=== PATIENT | male | born 1940 | race Caucasian/White ===

== ENCOUNTER 2018-10-25 11:10 | Inpatient (IN) ==
--- NOTE | 2018-10-25 11:55 | Diag Imaging Result Doc PS360 ---
EXAM: CHEST-2 VIEWS 10/25/2018 HISTORY: Shortness of breath TECHNIQUE: PA and lateral chest COMMENT: There are sternotomy wires. There is ill-defined opacity in the parahilar region of the left upper lobe which was not the case on 09/24/2018. The heart size and pulmonary vascularity are within normal limits. IMPRESSION: Bronchopneumonia left upper lobe. Electronically signed by Louie Vargas 10/25/2018 11:53 AM
[2018-10-25 12:08] LABS: INR 0.94; PROTIME 13.3 Seconds (11.0-16.0)
[2018-10-25 12:09] LABS: PTT 25.8 Seconds (22.3-41.8)
[2018-10-25 12:22] LABS: BASO# 0.01 X1000 (0.0-0.2); BASO% 0.1 % (0.0-0.8); EOS# 0.05 X1000 (0.0-0.7); EOS% 0.3 % (0.0-10.0); HEMATOCRIT 48.1 % (42.0-52.0); HEMOGLOBIN 16.2 g/dL (14.0-18.0); IMM GRAN# 0.05 X1000 (0.0-0.04); IMM GRAN% 0.3 % (0.0-0.5); LYMPH# 0.94 X1000 (1.2-3.4); LYMPH% 5.7 % (20.5-51.1); MCH 30.3 PG (27-31); MCHC 33.7 g/dL (33-37); MCV 90.1 FL (81-99); MONO# 0.67 X1000 (0.11-0.59); MONO% 4.1 % (1.7-9.3); NEUT# 14.66 X1000 (1.4-6.5); NEUT% 89.5 % (42.2-75.2); PLT 220 X1000 (130-400); RBC 5.34 XMIL (4.7-6.1); WBC 16.38 X1000 (4.8-10.8)
[2018-10-25 12:34] LABS: ALB/GLOB RATIO 1.4; ALBUMIN 3.9 g/dL (3.5-5.0); CALCIUM 9.5 mg/dL (8.8-10.2); CREATININE 1.7 mg/dL (0.7-1.2); POTASSIUM 4.4 mmol/L (3.5-5.1); TOTAL BILIRUBIN 1.06 mg/dL (0.20-1.00); TOTAL PROTEIN 6.6 g/dL (6.3-8.3)
[2018-10-25] MEDS ORDERED: NS 1,000 ML IV ONE ×2 (13:16→13:34)
[2018-10-25] MEDS ORDERED: HUMULIN R SUBQ ONE (13:16)
[2018-10-25] MEDS ORDERED: VANCOMYCIN 1 GM/NS 1 GM/250 ML IVPB IV ONE (13:28)
[2018-10-25] MEDS ORDERED: ZOFRAN IV PRN (13:40)
[2018-10-25 13:53] LABS: ALLEN TEST YES; BE 0.8 mmoll (-3.0-3.0); BLOOD TYPE ARTERIAL; HCO3-(ACT) 25.4 mmoll (20.0-26.0); METHB 0.5 % (0.0-1.5); O2HB 94.2 % (95.0-99.0); PCO2(98.6) 35 mmHg (35-45); PO2(98.6) 71 mmHg (60-100); SAMPLE BLOOD; SAO2 95.7 % (95.0-100.0); THB 15.9 g/dL (11.5-17.4); pH(98.6) 7.45 (7.35-7.45)
[2018-10-25 13:55] LABS: MODALITY ROOM AIR
[2018-10-25 14:14] LABS: AMYLASE 44 U/L (20-200); LIPASE 58 U/L (13-60); MAGNESIUM 2.1 mg/dL (1.5-2.7); PHOSPHORUS 3.9 mg/dL (2.7-4.5)
[2018-10-25 14:18] LABS: HEMOGLOBIN A1C 8.5 % (4.8-6.0)
[2018-10-25 14:44] LABS: ACETONE SERUM NEGATIVE (NEGATIVE)
[2018-10-25] MEDS: DUONEB (A & A) INH SCH ×2 (15:39→21:08)
[2018-10-25] MEDS ORDERED: MAGNESIUM SULFATE 2 GM/S.W.I. 2 GM/50 ML IVPB IV PRN (16:09)
[2018-10-25] MEDS ORDERED: SODIUM PHOSPHATE 30 MMOL in D5W 250 ML IV PRN (16:09)
[2018-10-25] MEDS ORDERED: D50W SYRINGE IV PRN (16:09)
[2018-10-25] MEDS ORDERED: POTASSIUM CHLORIDE 10% LIQUID PO PRN (16:09)
[2018-10-25] MEDS ORDERED: POTASSIUM CHLORIDE 40 MEQ/SWI 40 MEQ/100 ML IVPB IV PRN (16:09)
[2018-10-25] MEDS ORDERED: COMPAZINE PO PRN (16:09)
[2018-10-25] MEDS ORDERED: COMPAZINE IV PRN (16:09)
[2018-10-25] MEDS: HUMULIN R IV ONE ×2 (16:09)
[2018-10-25] MEDS ORDERED: HUMULIN R 100 UNIT in NS 99 ML IV SCH (16:09)
[2018-10-25] MEDS ORDERED: POTASSIUM CHLORIDE 20 MEQ/SWI 20 MEQ/100 ML IVPB IV PRN (16:09)
--- NOTE | 2018-10-25 16:47 | HISTORY AND PHYSICAL ---
DATE OF ADMISSION: October 25, 2018. PRIMARY CARE PHYSICIAN: Mona Diamond MD. CC: Polyuria, dry mouth, cough and shortness of breath. HISTORY OF PRESENT ILLNESS: Mr. Torrey Castle is an 82-[id number]- male with a medical history of hypertension, arthritis, seizure disorder, asthma, and coronary artery disease who now presents with complaints of having three week's worth of polyuria and dry mouth with difficulty eating due to the dry mouth. He also states that since then he has had a cough with it that is nonproductive and shortness of breath. He denies any fever or chills. He does have an inhaler. He has had asthma all his life. He has never been a smoker, and he has inspiratory wheezes. He states that at home he usually uses his inhaler which usually helps. Here, he has an elevated white blood cell count of 16,000 and a chest x-ray which showed bronchial pneumonia of the left upper lobe. On top of that, he has a blood glucose level of 815 with no medical history of having diabetes. He states that the last time he saw his primary care provider, she told him to not eat as much sugar that his blood sugar was a little elevated. Hemoglobin A1C was performed on this admit, and it is 8.5. We will start him on an insulin drip with some IV fluids and will transfer him to the ICU for overnight. PAST MEDICAL HISTORY: 1. Hypertension. 2. Arthritis. 3. Seizure disorder with the last one being in 2009. 4. Asthma. 5. CAD with a history of CABG. 6. Hyperlipidemia. 7. Skin cancer. 8. New diagnosis of diabetes mellitus type 2. 9. Influenza on October 07, 2018. 10.CKD stage 3. SURGICAL HISTORY: 1. CABG x1. 2. Bilateral inguinal hernia repair. 3. Bilateral cataracts. 4. Left foot surgery. SOCIAL HISTORY: Denies tobacco. Sips min on occasion only when he is playing golf, and he plays golf three times a week. He also goes to the gym three times a week. He is retired from working at [employer]. Denies any illicit drug use. FAMILY HISTORY: Brother had myocardial infarction. Mother had hypertension and diabetes. Father had myocardial infarction. ALLERGIES: PENICILLIN CAUSES A RASH BETWEEN THE FINGERS. HOME MEDICATIONS: Not reconciled by nursing staff yet. He does take Keppra though. He states he has been taking that 500 mg p.o. twice a day. Will wait for the full medication list to be reconciled. REVIEW OF SYSTEMS: 14 point review of systems was complete and all are negative except for those mentioned above in the HPI. Denies fever or chills. States that on occasion his stomach hurts only when he is coughing hard. He does have a cough that is nonproductive. He has some mild shortness of breath and wheezing. He recently had a positive flu that he was treated for. He has had complaints of excessive urination and very dry mouth for at least three weeks. PHYSICAL EXAM: VITAL SIGNS: Temperature 98.7, heart rate 92, respiratory rate 15, and blood pressure 132/87 with an O2 saturation of 94% on room air. He is 5'7" tall and weighs 150 pounds. BMI is 23.5. GENERAL: Mr. Torrey Castle is an 89-[id number]- male. He is in no acute distress. He is currently wearing a face mask due to his recent flu. It is not an oxygen face mask. It is a protective face mask. HEENT: Normocephalic, atraumatic. Pupils are equal, round and reactive to light. Extraocular movements intact. Mucous membranes are dry. NECK: Trachea is midline. CARDIOVASCULAR: S1, S2 with a regular rate and rhythm. No murmurs, rubs or gallops. No lower extremity edema. Plus 2 dorsalis and radial pulses. Negative JVD or carotid bruits. PULMONARY: Expiratory wheezes throughout. No accessory muscle use or work of breathing noted. GI: Soft, nontender and nondistended. Positive bowel sounds x4. EXTREMITIES: He is moving all extremities equally with full range of motion. NEUROLOGICAL: Alert and oriented x3. Follows commands. Sensory is intact. SKIN: Warm, dry and intact. LABORATORY DATA: WBC 16,000, hemoglobin 16, hematocrit 48 and platelet count 220. INR 0.94, PTT 25.8. ABGs are normal on room air with a pH of 7.45, pCO2 of 35, and pO2 with a bicarb of 25 and base excess of 0.8 with a saturation of 94% and lactate 1.5. Sodium 134, potassium 4.4, BUN 31, creatinine 1.1, glucose 815, hemoglobin A1C 8.5, phosphorous 3.9, magnesium 2.1 , bilirubin 1.06, AST 10, ALT 21, CK 22, troponin less than 0.01, proBNP 541, albumin 3.9, triglycerides 600, cholesterol total 192, HDL 39, LDL 73, amylase 44, lipase 58, serum lactate 1.5 , and serum acetone negative. IMAGING: Chest x-ray showed left upper lobe bronchopneumonia. ASSESSMENT AND PLAN: 1. Nonketotic hyperglycemia with newly diagnosed diabetes mellitus type 2. He did have steroids recently. It was back in September around the to be treated for the flu. He was only told by his physician to eat less sugar. His hemoglobin A1C is 8.5. ABGs are normal. He is not in any type of acidosis. We will put him on an insulin drip per protocol and monitor him only overnight in the ICU. Should be able to titrate down to a sliding scale. Once he can eat, he can be on a diabetic diet. 2. Cough with shortness of breath and community acquired left upper lobe bronchopneumonia. He will be getting treated with meropenem 1 gram IV q. 12 hours. Of course, he will still be getting IV fluid hydration. Nebulizers as well. 3. Asthma. Again, he will be on nebulizers. We will hold off on steroids given his high blood sugar. 4. Deep vein thrombosis prophylaxis with 5,000 units subcutaneously of heparin IV every 12 hours. 5. Chronic kidney disease stage 3. Currently he is at baseline. Patient seen and examined by me face to face, all the laboratory, vitals signs and images were reviewed, patient presented with elevated glucose levels, he has never been diagnose with diabetes he is severely dehydrated on my physical exam, mouth pain, weakness, patient states that he has been coughing more recently, to the point that he is always short of breath, images showed pneumonia, left hilar area, I will use insulin drip, antibiotics, respiratory treatment, oxygen, will get an HbA1C, he will go to the ICU, I agree with the [facility]'s assessment and plan, Toño Gibson MD. Dictated by KAREN Kaminski for Toño Li MD cc: KAREN Kaminski MD [facility]
[2018-10-25] MEDS ORDERED: VANCOMYCIN 1 GM/NS 1 GM/250 ML IVPB ONE (17:05)
--- NOTE | 2018-10-25 17:09 | ED EKG INTERP ---
This chart was entered by Isatu Hannah Scribe, acting as scribe for Nanda Love MD. EKG Interpretation - EKG Time of EKG reading by physician:: 11:50 EKG Read and Signed by:: Nanda Love (v) EKG Interpretation (*Must complete 3 of following elements*): Abnormal Rate: 93 Rhythm: NSR [place]: left ST Wave: normal Comments: possible left atrial enlargement, inferior infarct Attestation - Physician/ HELEN Attestation Patient care was provided by Advanced Practice Provider:: No The physician spent face to face time with patient:: Yes Advanced Practice Provider documentation review:: Supervising physician onsite and consulted in the evaluation and care of this patient. The physician did have a face to face encounter with the patient. This chart was documented by the indicated scribe, (Isatu Hannah Scribe) and accurately reflects the services I performed and decisions made by me, Nanda Love MD, as attested by the provider's signature.
--- NOTE | 2018-10-25 17:09 | PROVIDER DOCUMENTATION ---
This chart was entered by Isatu Hannah Scribe, acting as scribe for Nanda Love MD. HPI-Respiratory General - General Chief Complaint: Shortness of Breath Stated Complaint: FLU SYMPTOMS Time Seen by Provider: 10/25/18 13:13 Source: patient Allergies/Adverse Reactions: Patient Allergies Allergy/AdvReac Type Severity Reaction Status Date / Time Penicillins Allergy RASH Verified 10/25/18 13:23 Home Medications: Home Medication List Medication Instructions Recorded Confirmed Last Taken Type Albuterol Sulfate 1.25 mg IH PRN PRN 11/30/14 11/30/14 Unknown History Febuxostat [Uloric] 80 mg PO DAILY 11/30/14 11/30/14 12/01/14 20:00 History Hydrochlorothiazide 25 mg PO DAILY 11/30/14 11/30/14 12/01/14 20:00 History Hydroxyzine [Atarax] 25 mg PO BID 11/30/14 11/30/14 12/01/14 08:00 History Levetiracetam [Keppra] 500 mg PO BID 11/30/14 11/30/14 12/02/14 07:15 History Losartan Potassium [Cozaar] 25 mg PO DAILY 11/30/14 11/30/14 12/01/14 20:00 History Meloxicam [Mobic] 15 mg PO DAILY 11/30/14 11/30/14 12/01/14 20:00 History Montelukast Sodium [Singulair] 10 mg PO DAILY 11/30/14 11/30/14 12/01/14 20:00 History [place]-3 Fatty Acids/Fish Oil 1 each PO DAILY 11/30/14 11/30/14 12/01/14 08:00 History [[place] 3 1,000 mg Softgel] Potassium Chloride 10 meq PO DAILY 11/30/14 11/30/14 12/01/14 08:00 History Tramadol [Ultram] 50 mg PO Q6H PRN PRN 11/30/14 11/30/14 12/01/14 08:00 History - History of Present Illness-Resp Nature of Presenting Problem: 78yom c/o cough, sob, sore mouth, and chest pain with cough for one week. He reports he has been ill since 10/13/18, and has been diagnosed with influenza twice and seen in the ED twice since this time. He reports visiting his PCP on Friday and was prescribed steroids and antibiotics. He reports that his PCP wanted to admit him to the hospital at this time, but he declined. He has no hx of diabetes, per family. He reports his symptoms are not improving. He denies fever, chills, nausea, vomiting, diarrhea. Quality of Pain: reports: aching Severity in ED: reports: mild Onset/Duration: reports: 1 week ago Timing: reports: still present, intermittent, constant Current Respiratory Medication Therapy: Initiated see nurses note Modifying Factors: improves with: nothing Associated Symptoms: reports: other (cough, sob, sore mouth, and chest pain with cough) Similar Symptoms Previously?: No Recently seen or treated by another doctor?: No Review of Systems - Adult - REVIEW OF SYSTEMS - ADULT Constitutional: denies: chills, fever Eyes: denies: discharge, dry eyes Ears, Nose, Mouth & Throat: reports: other (sore mouth). denies: ear discharge , ear pain Cardiovascular: reports: chest pain (with cough). denies: palpitations Respiratory: reports: cough, shortness of breath Gastrointestinal: denies: abdominal pain, diarrhea, nausea, vomiting Genitourinary: denies: dysuria, hematuria Musculoskeletal: denies: back pain, muscle aches, muscle weakness Integumentary: reports: no symptoms reported Neurological: denies: dizziness/vertigo, headache/migraines Psychiatric: reports: no symptoms reported Endocrine: reports: no symptoms reported Hematologic/Lymphatic: reports: no symptoms reported Allergic/Immunologic: reports: no symptoms reported All Other Systems: Reviewed and Negative Past History - Adult - PAST MEDICAL HISTORY-ADULT Review of Records: reports: Old Records Reviewed, Nursing Assessment Review, Medications Reviewed Cardiovascular: reports: HTN Genitourinary: reports: kidney disease Neurological: reports: CVA, Seizures/Epilepsy Endocrine/Immune: reports: Diabetes - PRIOR SURGERIES/PROCEDURES Surgical/Procedure History: reports: CABG - IMMUNIZATION STATUS Childhood Immunizations: See Nurse Assessment Flu Vaccine: See Nurse Assessment - FAMILY HISTORY Family History: reviewed, not pertinent - SOCIAL HISTORY Smoking: non-smoker Substance Use: denies Living Situation: family Physical Exam-General - PHYSICAL EXAM-ADULT Initial Vital Signs Reviewed: Yes - CONSTITUTIONAL General Appearance: alert, no apparent distress, other (pt is wearing a mask) - EYES Eyes: PERRL/EOMI, pink conjunctivae - HEAD, EARS, NOSE, MOUTH & THROAT HENMT: moist mucous membranes, other - NECK Neck: non-tender, supple - RESPIRATORY Respiratory: no respiratory distress, no accessory muscle use, crackles - CARDIOVASCULAR Cardiovascular: regular rate, rhythm, no murmur - MUSCULOSKELETAL Extremity: non-tender, no pedal edema - SKIN Integumentary: normal color, warm/dry - NEUROLOGIC Neurologic: grossly normal, no motor/sensory deficits - PSYCHIATRIC Psych/Mental Status: normal mood/affect, normal thought content, normal thought process, oriented x 3 Progress - PLAN OF CARE/RESULTS Progress/Plan/Lab Results: Vital Signs - 8 hr 10/25/18 11:34 Temperature 98.7 F Pulse Rate 100 H Respiratory Rate 18 Blood Pressure 132/87 O2 Sat by Pulse Oximetry 100 10/25/18 13:49 Influenza Screen - Final Nasopharyngeal Laboratory Results - last 24 hr 10/25/18 10/25/18 10/25/18 11:47 11:47 11:47 WBC 16.38 H RBC 5.34 Hgb 16.2 Hct 48.1 MCV 90.1 MCH 30.3 MCHC 33.7 RDW Std Deviation 12.0 Plt Count 220 MPV 11.0 H Immature Gran % (Auto) 0.3 Neut % (Auto) 89.5 H Lymph % (Auto) 5.7 L [place] % (Auto) 4.1 Eos % (Auto) 0.3 Baso % (Auto) 0.1 Immature Gran # (Auto) 0.05 H Neut # (Auto) 14.66 H Lymph # (Auto) 0.94 L [place] # (Auto) 0.67 H Eos # (Auto) 0.05 Baso # (Auto) 0.01 PT INR PTT (Actin FS) Specimen Type Sample Site pH pCO2 pO2 HCO3 Base Excess Oxyhemoglobin ABG O2 Sat (Calculated) ABG O2 Saturation ABG Carboxyhemoglobin ABG Methemoglobin Remi Test A-a O2 Difference Total Hemoglobin POC Ioniz Calcium Lactate Blood Gas Modality FiO2 % Sodium 134 L Potassium 4.4 Chloride 91 L Carbon Dioxide 25 Anion Gap 18 BUN 31 H Creatinine 1.7 H Estimated GFR/1.73 m2 39 BUN/Creatinine Ratio 18 Glucose 815 H* Estimat Average Glucose Hemoglobin A1c Calculated Osmolality 314 Calcium 9.5 Phosphorus Magnesium Total Bilirubin 1.06 H AST 10 ALT 21 Alkaline Phosphatase 97 Creatine Kinase 22 L Troponin T Udx-V-Aiftxonleqs Pept 541 H Total Protein 6.6 Albumin 3.9 Globulin 2.7 Albumin/Globulin Ratio 1.4 Triglycerides Cholesterol LDL Cholesterol Direct VLDL Cholesterol, Calc HDL Cholesterol Coronary Risk Interp Amylase Lipase Plasma Lactate Acetone Level 10/25/18 10/25/18 10/25/18 11:47 11:47 11:47 WBC RBC Hgb Hct MCV MCH MCHC RDW Std Deviation Plt Count MPV Immature Gran % (Auto) Neut % (Auto) Lymph % (Auto) [place] % (Auto) Eos % (Auto) Baso % (Auto) Immature Gran # (Auto) Neut # (Auto) Lymph # (Auto) [place] # (Auto) Eos # (Auto) Baso # (Auto) PT 13.3 INR 0.94 PTT (Actin FS) 25.8 Specimen Type Sample Site pH pCO2 pO2 HCO3 Base Excess Oxyhemoglobin ABG O2 Sat (Calculated) ABG O2 Saturation ABG Carboxyhemoglobin ABG Methemoglobin Remi Test A-a O2 Difference Total Hemoglobin POC Ioniz Calcium Lactate Blood Gas Modality FiO2 % Sodium Potassium Chloride Carbon Dioxide Anion Gap BUN Creatinine Estimated GFR/1.73 m2 BUN/Creatinine Ratio Glucose Estimat Average Glucose Hemoglobin A1c Calculated Osmolality Calcium Phosphorus Magnesium Total Bilirubin AST ALT Alkaline Phosphatase Creatine Kinase Troponin T < 0.010 Yvg-W-Khbfjdnciog Pept Total Protein Albumin Globulin Albumin/Globulin Ratio Triglycerides 600 H Cholesterol 192 LDL Cholesterol Direct 73 VLDL Cholesterol, Calc 120 HDL Cholesterol 39 Coronary Risk Interp 5.00 Amylase Lipase Plasma Lactate Acetone Level 10/25/18 10/25/18 10/25/18 11:47 11:47 13:42 WBC RBC Hgb Hct MCV MCH MCHC RDW Std Deviation Plt Count MPV Immature Gran % (Auto) Neut % (Auto) Lymph % (Auto) [place] % (Auto) Eos % (Auto) Baso % (Auto) Immature Gran # (Auto) Neut # (Auto) Lymph # (Auto) [place] # (Auto) Eos # (Auto) Baso # (Auto) PT INR PTT (Actin FS) Specimen Type Sample Site pH pCO2 pO2 HCO3 Base Excess Oxyhemoglobin ABG O2 Sat (Calculated) ABG O2 Saturation ABG Carboxyhemoglobin ABG Methemoglobin Remi Test A-a O2 Difference Total Hemoglobin POC Ioniz Calcium 1.26 Lactate Blood Gas Modality FiO2 % Sodium Potassium Chloride Carbon Dioxide Anion Gap BUN Creatinine Estimated GFR/1.73 m2 BUN/Creatinine Ratio Glucose Estimat Average Glucose 197 Hemoglobin A1c 8.5 H Calculated Osmolality Calcium Phosphorus 3.9 Magnesium 2.1 Total Bilirubin AST ALT Alkaline Phosphatase Creatine Kinase Troponin T Ohi-Z-Fluweehnxph Pept Total Protein Albumin Globulin Albumin/Globulin Ratio Triglycerides Cholesterol LDL Cholesterol Direct VLDL Cholesterol, Calc HDL Cholesterol Coronary Risk Interp Amylase 44 Lipase 58 Plasma Lactate Acetone Level NEGATIVE 10/25/18 10/25/18 13:44 13:51 WBC RBC Hgb Hct MCV MCH MCHC RDW Std Deviation Plt Count MPV Immature Gran % (Auto) Neut % (Auto) Lymph % (Auto) [place] % (Auto) Eos % (Auto) Baso % (Auto) Immature Gran # (Auto) Neut # (Auto) Lymph # (Auto) [place] # (Auto) Eos # (Auto) Baso # (Auto) PT INR PTT (Actin FS) Specimen Type ARTERIAL Sample Site L RADIAL pH 7.45 pCO2 35 pO2 71 HCO3 25.4 Base Excess 0.8 Oxyhemoglobin 94.2 L ABG O2 Sat (Calculated) 21.0 ABG O2 Saturation 95.7 ABG Carboxyhemoglobin 1.10 ABG Methemoglobin 0.5 Remi Test YES A-a O2 Difference 35.0 Total Hemoglobin 15.9 POC Ioniz Calcium Lactate 1.50 Blood Gas Modality ROOM AIR FiO2 % 21.0 Sodium Potassium Chloride Carbon Dioxide Anion Gap BUN Creatinine Estimated GFR/1.73 m2 BUN/Creatinine Ratio Glucose Estimat Average Glucose Hemoglobin A1c Calculated Osmolality Calcium Phosphorus Magnesium Total Bilirubin AST ALT Alkaline Phosphatase Creatine Kinase Troponin T Dwy-X-Mudcnduybuf Pept Total Protein Albumin Globulin Albumin/Globulin Ratio Triglycerides Cholesterol LDL Cholesterol Direct VLDL Cholesterol, Calc HDL Cholesterol Coronary Risk Interp Amylase Lipase Plasma Lactate 1.5 Acetone Level Orders Category Date Time Status Admit - [facility] Routine AdmDCTranf 10/25/18 13:40 Active Activity - Bedrest with BSC ORDERED Care 10/25/18 13:40 Active Cardiac Monitoring DIRECTED Care 10/25/18 11:39 Active [place]mers Cath Insertion ORDERED Care 10/25/18 13:29 Active Oxygen Therapy- ED Nursing DIRECTED Care 10/25/18 11:39 Active Saline Loc NOW Care 10/25/18 11:39 Active Update & Confirm Home Medicati ROUTINE Care 10/25/18 13:40 Active Use DKA Protocol (paper) ORDERED Care 10/25/18 13:34 Active Vital Signs Order Q1H Care 10/25/18 13:40 Active Clear Liquid Diet Diet 10/25/18 13:40 Active CHEST-2 VIEWS [RAD] Stat Exams 10/25/18 11:39 Completed A1C HGB W EST AVG GLUCOSE [CHEM] Stat Lab 10/25/18 11:47 Completed ABG [RESP] Routine Lab 10/25/18 13:44 Completed AMYLASE [CHEM] Stat Lab 10/25/18 11:47 Completed BLOOD CULTURE [BLDCUL] Stat Lab 10/25/18 13:51 Results CBC WITH ELECTRONIC DIFF [HEME] Stat Lab 10/25/18 11:47 Completed CK PROFILE [SP CHEM] Stat Lab 10/25/18 11:47 Completed COMPREHENSIVE METABOLIC PANEL [CHEM] Stat Lab 10/25/18 11:47 Completed Flu Swab [INFLUENZA SCREEN A/B] Stat Lab 10/25/18 13:49 Completed I-STAT IONIZED CALCIUM [RESP] Routine Lab 10/25/18 13:42 Completed Ketone [ACETONE SERUM] [CHEM] Stat Lab 10/25/18 11:47 Completed LACTATE, PLASMA [CHEM] Stat Lab 10/25/18 13:51 Completed LIPASE [CHEM] Stat Lab 10/25/18 11:47 Completed LIPID PROFILE W/DIR LDL [LIPIDS] Stat Lab 10/25/18 11:47 Completed MAGNESIUM [CHEM] Stat Lab 10/25/18 11:47 Completed PHOSPHORUS [CHEM] Stat Lab 10/25/18 11:47 Completed PRO B-NATRIURETIC PEPTIDE Stat Lab 10/25/18 11:47 Completed PROTIME WITH INR [COAG] Stat Lab 10/25/18 11:47 Completed PTT [COAG] Stat Lab 10/25/18 11:47 Completed TROPONIN T Stat Lab 10/25/18 11:47 Completed URINALYSIS W/POSS RFLX CULT [URINALYSIS] Stat Lab 10/25/18 13:29 Uncollected URINE DRUG SCREEN Stat Lab 10/25/18 13:42 Uncollected 0.9% Sodium Chloride Inj [Ns] 1,000 ml Med 10/25/18 13:45 Active IV 125 mls/hr 0.9% Sodium Chloride Inj [Ns] 1,000 ml Med 10/25/18 13:16 Discontinued IV 999 mls/hr 0.9% Sodium Chloride Inj [Ns] 1,000 ml Med 10/25/18 13:34 Discontinued IV 999 mls/hr Acetaminophen [Tylenol] Med 10/25/18 13:40 Active 650 mg PO Q6H PRN PRN Albuterol 2.5MG/Ipratrop 0.5MG [Duoneb (A & A)] Med 10/25/18 16:00 Active 3 ml INH RTQ6H Heparin Med 10/25/18 21:00 Active 5,000 unit SUBQ Q12H Insulin Human Regular [Humulin R] Med 10/25/18 13:16 Discontinued 10 unit SUBQ NOW ONE Linezolid 600 mg/D5w [Zyvox 600 mg/D5w] Med 10/25/18 13:45 Active 600 mg in 300 ml IV Q12H Meropenem [Merrem] 1 gm Med 10/25/18 16:00 Active 0.9% Sodium Chloride Inj [Ns] 50 ml IV Q12H Ondansetron [Zofran] Med 10/25/18 13:40 Active 4 mg IV Q4H PRN PRN Vancomycin 1 gm/Ns Med 10/25/18 13:28 Discontinued 1 gm in 250 ml IV NOW CP/SOB/Palp >45 yrs of Age Stat Oth 10/25/18 11:39 Ordered EKG [EKG] Stat Ther 10/25/18 11:39 Ordered Transfer/Admit Order [TRANSFER] Routine Transfer 10/25/18 13:35 Ordered Result Diagrams: 10/25/18 11:47 10/25/18 11:47 - XRAY 1 XRAY Study: Chest Impression: Abnormal (COMMENT: There are sternotomy wires. There is ill-defined opacity in the parahilar region of the left upper lobe which was not the case on 09/24/2018. The heart size and pulmonary vascularity are within normal limits. IMPRESSION: Bronchopneumonia left upper lobe.) - CONSULTS/PCP/HOSPITALIST Notification #1 *Consult/PCP/Hospitalist*: KAREN Garcia Time Discussed: 13:29 Consult Disposition: Admit Departure - Departure Date of Disposition Decision: 10/25/18 Time of Disposition Decision: 14:30 DIAGNOSIS: Hypoglycemia, Influenza, Hyperglycemia, Acute on chronic kidney failure Sepsis Qualifiers: Sepsis type: sepsis due to unspecified organism Qualified Code(s): A41.9 - Sepsis, unspecified organism Pneumonia Qualifiers: Pneumonia type: due to unspecified organism Laterality: unspecified laterality Lung location: unspecified part of lung Qualified Code(s): J18.9 - Pneumonia, unspecified organism Disposition: ADMITTED INPATIENT 09 Certified Medical Emergency: Emergent Condition: Stable - Critical Care Note This patient required my direct & personal management of CC.: Yes Total Time (mins): 35 Critical Care Statement: This patient required my direct personal management to treat or rule out processes, the absence of which, could potentiallly result in sudden, clinically significant life or limb threatening deterioration. Attestation - Physician/ HELEN Attestation Patient care was provided by Advanced Practice Provider:: No The physician spent face to face time with patient:: Yes Advanced Practice Provider documentation review:: Supervising physician onsite and consulted in the evaluation and care of this patient. The physician did have a face to face encounter with the patient. This chart was documented by the indicated scribe, (Isatu Hannah, Luois[place]) and accurately reflects the services I performed and decisions made by me, Nanda Love MD, as attested by the provider's signature.
[2018-10-25] MEDS: NS 1,000 ML IV SCH (17:14)
[2018-10-25] MEDS: MERREM 1 GM in NS 50 ML IV SCH (20:26)
[2018-10-25 20:34] LABS: URINE SOURCE CATH
[2018-10-25 20:49] LABS: UR AMPHETAMINES QUAL NONE DETECTED (NONE DETECT); UR BARBITUATES QUAL NONE DETECTED (NONE DETECT); UR BENZODIAZEPIN QUAL NONE DETECTED (NONE DETECT); UR CANNABINOIDS QUAL NONE DETECTED (NONE DETECT); UR COCAINE QUAL NONE DETECTED (NONE DETECT); UR METHADONE QUAL NONE DETECTED (NONE DETECT); UR OPIATES QUAL NONE DETECTED (NONE DETECT); UR OXYCODONE QUAL NONE DETECTED (NONE DETECT); UR PCP QUAL NONE DETECTED (NONE DETECT)
[2018-10-25 20:50] LABS: BILIRUBIN URINE NEGATIVE (NEGATIVE); BLOOD URINE NEGATIVE (NEGATIVE); COLOR YELLOW; GLUCOSE URINE >1000 mg/dL (NEGATIVE); KETONE URINE 10 mg/dL (NEGATIVE); LEUKOCYTES URINE NEGATIVE (NEGATIVE); NITRITE URINE NEGATIVE (NEGATIVE); PH URINE 5.5; PROTEIN URINE NEGATIVE (NEGATIVE); SP GRAVITY URINE 1.029; TURBIDITY URINE CLEAR (CLEAR); UROBILINOGEN URINE NORMAL (NORMAL)
[2018-10-25 20:52] LABS: UR EPITHELIAL CELLS <10 /HPF (<10); URINE BACTERIA NEGATIVE /HPF; URINE RBC <10 /HPF (<10); URINE WBC <10 /HPF (<10)
[2018-10-26] MEDS: NS 1,000 ML IV SCH ×6 (00:13→15:30)
[2018-10-26] MEDS: ZYVOX 600 MG/D5W 600 MG/300 ML IVPB IV SCH ×3 (00:52→14:52)
[2018-10-26] MEDS: HEPARIN SUBQ SCH ×3 (00:53→20:03)
[2018-10-26] MEDS: DUONEB (A & A) INH SCH ×4 (03:17→22:22)
[2018-10-26] MEDS: D5 NS 1,000 ML IV SCH ×2 (03:37→08:22)
[2018-10-26] MEDS ORDERED: BLISTEX MEDICATED BERRY LIP BALM TOP PRN (04:55)
[2018-10-26 05:01] LABS: ALLEN TEST YES; BE -2.2 mmoll (-3.0-3.0); BLOOD TYPE ARTERIAL; HCO3-(ACT) 23.2 mmoll (20.0-26.0); METHB 0.3 % (0.0-1.5); O2(CT) 16.4 mL/dL (15.0-23.0); O2HB 96.6 % (95.0-99.0); PCO2(98.6) 37 mmHg (35-45); PO2(98.6) 103 mmHg (60-100); SAMPLE BLOOD; SAO2 97.3 % (95.0-100.0); pH(98.6) 7.39 (7.35-7.45)
[2018-10-26 05:02] LABS: MODALITY CANNULA
[2018-10-26 05:06] LABS: EOS# 0.02 X1000 (0.0-0.7); EOS% 0.2 % (0.0-10.0); HEMATOCRIT 39.2 % (42.0-52.0); HEMOGLOBIN 13.2 g/dL (14.0-18.0); IMM GRAN# 0.03 X1000 (0.0-0.04); IMM GRAN% 0.3 % (0.0-0.5); LYMPH# 1.12 X1000 (1.2-3.4); LYMPH% 10.5 % (20.5-51.1); MCH 30.6 PG (27-31); MCHC 33.7 g/dL (33-37); MONO# 0.53 X1000 (0.11-0.59); NEUT# 8.97 X1000 (1.4-6.5); PLT 134 X1000 (130-400); RBC 4.31 XMIL (4.7-6.1); WBC 10.67 X1000 (4.8-10.8)
[2018-10-26] MEDS: MERREM 1 GM in NS 50 ML IV SCH ×2 (05:11→16:24)
[2018-10-26 05:19] LABS: ALBUMIN 2.8 g/dL (3.5-5.0); CALCIUM 8.7 mg/dL (8.8-10.2); CREATININE 1.3 mg/dL (0.7-1.2); MAGNESIUM 1.7 mg/dL (1.5-2.7); POTASSIUM 4.1 mmol/L (3.5-5.1); TOTAL BILIRUBIN 0.62 mg/dL (0.20-1.00); TOTAL PROTEIN 5.5 g/dL (6.3-8.3)
[2018-10-26 05:43] LABS: INR 1.04; PROTIME 14.5 Seconds (11.0-16.0)
[2018-10-26 05:44] LABS: PTT 34.1 Seconds (22.3-41.8)
--- NOTE | 2018-10-26 07:00 | EKG Report ---
Test Performed on : 10/26/2018 06:48:37 AM Test Reason : dka protocol Blood Pressure : / mmHG Vent. Rate : 097 BPM Atrial Rate : 097 BPM P-R Int : 144 ms QRS Dur : 080 ms QT Int : 374 ms P-R-T Axes : 026 -69 052 degrees QTc Int : 474 ms Normal sinus rhythm. Left axis deviation Possible Inferior infarct (cited on or before 25-OCT-2018)(vs. left axis) Abnormal ECG When compared with ECG of 25-OCT-2018 11:45, (Unconfirmed) No significant change was found Confirmed by Oralia COUGHLIN, Edgar Kang ([id number]) on 10/26/2018 10:12:40 PM
--- NOTE | 2018-10-26 07:12 | EKG Report ---
Test Performed on : 10/25/2018 11:45:39 AM Test Reason : Shortness of breath Blood Pressure : / mmHG Vent. Rate : 093 BPM Atrial Rate : 093 BPM P-R Int : 152 ms QRS Dur : 082 ms QT Int : 380 ms P-R-T Axes : 035 -78 062 degrees QTc Int : 472 ms Normal sinus rhythm. Possible Left atrial enlargement Left axis deviation Inferior infarct , age undetermined Abnormal ECG When compared with ECG of 06-JUL-2011 13:31, QT has lengthened Unconfirmed Result
[2018-10-26] MEDS: ULORIC PO SCH (09:41)
--- NOTE | 2018-10-26 09:41 | PROGRESS NOTE ---
DATE: 10/26/2018 SUBJECTIVE: No acute events overnight. No new complaints today. This patient is tolerating p.o. He is not complaining of pain, nausea, or vomiting. Actually, I will advance his diet, but I need to continue treating this patient in the ICU due to his elevated glucose, high anion gap, and insulin drip. OBJECTIVE: Vital Signs: Temperature 99.7, pulse 97, respiratory rate 17, blood pressure 139/68, oxygen saturation 98 on 2 L of nasal cannula. HEENT: Head - Normocephalic. No trauma. PERRLA. Neck: Supple. No JVD. No masses. Central trachea. Chest: Clear to auscultation. No wheezing. No rales. Abdomen: Soft, nontender, and nondistended. No hepatosplenomegaly. Extremities: No edema. No clubbing. No cyanosis. Neurological: The patient is alert and oriented x3. No focal neurological deficits. LABORATORY: WBC 10.6, hemoglobin 13.2, hematocrit 39.2, platelets 134,000. Sodium 142, potassium 4.1, chloride 106, bicarbonate 20, BUN 18, creatinine 1.3, glucose 390, calcium 8.7. ASSESSMENT AND PLAN: 1. Nonketotic hyperglycemia with newly diagnosed diabetes mellitus type 2. Apparently, he received some steroids recently, back in October 07 or so to be treated for the flu. Apparently, his blood sugar was high before, and his doctor told him to take care of his diet. His hemoglobin A1c is 8.5. We started this patient on insulin drip. Anion gap is still elevated. He has been placed today on a diabetic diet because he is not throwing up. We will continue to monitor this patient closely. 2. Cough with shortness of breath and community-acquired pneumonia, left upper lobe pneumonia. Will patient with meropenem, IV fluids, breathing treatment, and oxygen as needed. He is allergic to penicillin. 3. Asthma, again, not in exacerbation. We will hold any kind of steroids. He is not wheezing. 4. Deep vein thrombosis prophylaxis with heparin subcu every 12 hours due to his kidney injury/chronic kidney disease. 5. Acute on chronic kidney disease. This is getting better. It looks like he went back to his baseline. 6. Hypertension. I will hold his blood pressure medication for now including his angiotensin- receptor blockers due to his kidney dysfunction. 7. Seizure disorder. Continue with Keppra twice a day. 8. History of coronary artery disease with coronary artery bypass graft. Aware. No chest pain at this moment. Overall, his blood sugar is getting better. WBC normalized, and his kidney functions are at his baseline right now. The plan is to go ahead and continue with insulin drip in the ICU, monitor his blood pressure closely, and hopefully today, I want to be able to stop the insulin drip and switch it to long-acting insulin. I have advanced his diet because he is tolerating p.o. without nausea or vomiting. CRITICAL CARE TIME: 35 minutes. cc: Toño Li MD
[2018-10-26] MEDS: KEPPRA PO SCH ×2 (09:42→20:03)
[2018-10-26] MEDS: ASPIRIN EC PO SCH (09:42)
[2018-10-26] MEDS: SINGULAIR PO SCH (09:42)
[2018-10-26] MEDS: TOPROL XL PO SCH (09:42)
[2018-10-26 10:38] LABS: AGAP 14; BUN 14 mg/dL (8-22); CALCIUM 9.3 mg/dL (8.8-10.2); CHLORIDE 107 mmol/L (98-107); COSMO 295; CREATININE 1.1 mg/dL (0.7-1.2); ESTIMATED GFR > 60; GLUCOSE 270 mg/dL (70-104); PHOSPHORUS 1.5 mg/dL (2.7-4.5); POTASSIUM 3.5 mmol/L (3.5-5.1); SODIUM 143 mmol/L (136-145); TCO2 22 mmol/L (25-35)
[2018-10-26] MEDS: POTASSIUM CHLORIDE 20% LIQUID PO PRN ×2 (12:06→16:25)
[2018-10-26 15:02] LABS: AGAP 9; BUN 12 mg/dL (8-22); CALCIUM 8.4 mg/dL (8.8-10.2); CHLORIDE 110 mmol/L (98-107); COSMO 293; ESTIMATED GFR > 60; GLUCOSE 249 mg/dL (70-104); PHOSPHORUS 1.1 mg/dL (2.7-4.5); POTASSIUM 3.5 mmol/L (3.5-5.1); SODIUM 143 mmol/L (136-145); TCO2 24 mmol/L (25-35)
[2018-10-26] MEDS: TYLENOL PO PRN (15:28)
[2018-10-26] MEDS ORDERED: BASAGLAR SUBQ ONE (16:24)
[2018-10-26] MEDS ORDERED: 1/2 NS 1,000 ML IV SCH (16:30)
[2018-10-26] MEDS ORDERED: NS 1,000 ML IV SCH (16:30)
[2018-10-26] MEDS ORDERED: INSULIN PEN NEEDLES ONE (17:34)
[2018-10-26] MEDS: PRAVACHOL PO SCH (20:03)
[2018-10-26] MEDS: HUMULIN R SUBQ SCH (20:03)
[2018-10-27] MEDS: ZYVOX 600 MG/D5W 600 MG/300 ML IVPB IV SCH ×2 (01:19→14:17)
[2018-10-27] MEDS: MERREM 1 GM in NS 50 ML IV SCH ×2 (03:24→16:06)
[2018-10-27] MEDS: DUONEB (A & A) INH SCH ×4 (03:38→22:01)
[2018-10-27 05:30] LABS: EOS# 0.09 X1000 (0.0-0.7); EOS% 1.3 % (0.0-10.0); HEMATOCRIT 36.5 % (42.0-52.0); HEMOGLOBIN 12.1 g/dL (14.0-18.0); LYMPH# 0.97 X1000 (1.2-3.4); LYMPH% 14.2 % (20.5-51.1); MCH 30.5 PG (27-31); MCHC 33.2 g/dL (33-37); MCV 91.9 FL (81-99); MONO# 0.28 X1000 (0.11-0.59); MONO% 4.1 % (1.7-9.3); MPV 11.1 FL (7.4-10.4); NEUT# 5.51 X1000 (1.4-6.5); NEUT% 80.4 % (42.2-75.2); PLT 129 X1000 (130-400); RBC 3.97 XMIL (4.7-6.1); RDW 12.1 % (11.5-14.5); WBC 6.85 X1000 (4.8-10.8)
[2018-10-27 05:55] LABS: AGAP 12; BUN 10 mg/dL (8-22); CALCIUM 7.9 mg/dL (8.8-10.2); CHLORIDE 105 mmol/L (98-107); CHOLESTEROL 122 mg/dL (0-200); COSMO 291; CREATININE 0.9 mg/dL (0.7-1.2); ESTIMATED GFR > 60; GLUCOSE 320 mg/dL (70-104); HDL 31 mg/dL (35-55); LDL 42 mg/dL; MAGNESIUM 1.7 mg/dL (1.5-2.7); PHOSPHORUS 1.3 mg/dL (2.7-4.5); POTASSIUM 3.3 mmol/L (3.5-5.1); SODIUM 140 mmol/L (136-145); TCO2 23 mmol/L (25-35); TRIGLYCERIDES 246 mg/dL (39-160); VLDL 49 mg/dL
[2018-10-27 06:05] LABS: ALLEN TEST YES; BE -0.5 mmoll (-3.0-3.0); BLOOD TYPE ARTERIAL; HCO3-(ACT) 24.5 mmoll (20.0-26.0); O2(CT) 22.1 mL/dL (15.0-23.0); O2HB 96.1 % (95.0-99.0); PCO2(98.6) 35 mmHg (35-45); PO2(98.6) 117 mmHg (60-100); SAMPLE BLOOD; SAO2 97.1 % (95.0-100.0); THB 16.3 g/dL (11.5-17.4); pH(98.6) 7.43 (7.35-7.45)
[2018-10-27 06:08] LABS: MODALITY CANNULA
[2018-10-27] MEDS: HUMULIN R SUBQ SCH ×8 (06:27→23:29)
[2018-10-27] MEDS ORDERED: KLOR-CON PO ONE (07:27)
[2018-10-27] MEDS ORDERED: G.I. COCKTAIL PO ONE (08:30)
--- NOTE | 2018-10-27 08:41 | Diag Imaging Result Doc PS360 ---
EXAM: CHEST-PORTABLE HISTORY: SOB TECHNIQUE: Portable chest single view COMPARISON: 10/25/2018 FINDINGS: The lungs are well expanded. The heart is not enlarged. Sternal wires are present. The vessels are not distended. There is a tiny left perihilar infiltrate as well as basilar atelectasis. No effusion identified. IMPRESSION: No interval improvement Electronically signed by Gerardo Gallagher 10/27/2018 8:38 AM
[2018-10-27] MEDS: SINGULAIR PO SCH (08:50)
[2018-10-27] MEDS: ASPIRIN EC PO SCH (08:50)
[2018-10-27] MEDS: ULORIC PO SCH (08:50)
[2018-10-27] MEDS: HEPARIN SUBQ SCH ×2 (08:50→20:14)
[2018-10-27] MEDS: KEPPRA PO SCH ×2 (08:50→20:15)
[2018-10-27] MEDS: TOPROL XL PO SCH (08:50)
[2018-10-27] MEDS: BASAGLAR SUBQ SCH (08:51)
[2018-10-27] MEDS ORDERED: POTASSIUM PHOSPHATE 21 MMOL in NS 250 ML IV ONE ×4 (09:00)
[2018-10-27] MEDS: CENTRUM SILVER PO SCH (09:13)
[2018-10-27] MEDS: MYCOSTATIN SUSP PO SCH ×4 (09:13→20:15)
--- NOTE | 2018-10-27 09:18 | PROGRESS NOTE ---
DATE: 10/27/2018 SUBJECTIVE: No acute events overnight. He is complaining of mouth pain and he has some dryness and a little wound at the corner of the mouth bilaterally, which is likely secondary to dehydration. We will try to keep this moist. I examined his mouth and he has a red color mostly everywhere. That is probably related to some food that he ate yesterday, Jell-O. His potassium level is a little bit low as well as the potassium so he will receive potassium phosphate. I will add multivitamins daily. Occupational therapy and physical therapy as well. Probably, he has a little plaque on the side of the tongue but it is hard to say with the reddish color. I will start this patient on nystatin. OBJECTIVE: Vital Signs: Temperature 99.2 degrees, pulse 90, respiratory rate 19, blood pressure 129/68, oxygen saturation 98 on 3 L of nasal cannula. HEENT: Head normocephalic. No trauma. PERRLA. Neck: Supple. No JVD. No masses. Central trachea. Chest: Clear to auscultation. Some crepitus at the bases. Abdomen: Soft, nontender, nondistended. No hepatosplenomegaly. Extremities: No edema. No clubbing. No cyanosis. Neurological Examination: Alert and oriented x3. No focal deficits. Mild generalized weakness. Mouth: The whole mouth is red and this is probably due to Jell-O that he ate yesterday during the night. Probably, he has a little plaque on the side of the tongue but is hard to really see that very well. Laboratory: WBCs 6.8, hemoglobin 12.1, hematocrit 36.5, platelets 129,000. Sodium 140, potassium 3.3, chloride 105, bicarbonate 23, BUN 10, creatinine 0.9, glucose 320, calcium 7.9, phosphorus 1.3, magnesium 1.7. ASSESSMENT AND PLAN: 1. Nonketotic hyperglycemia with newly diagnosed type 2 diabetes. Yesterday, I started this patient on Lantus 20 which I have increased today to 30. His insulin drip also had been stopped yesterday. His blood sugar is still uncontrolled, in the 300s. Anion gap is closed. I will monitor this patient closely. 2. Cough with shortness of breath and likely community-acquired pneumonia, left perihilar area. Continue with meropenem, intravenous fluids, breathing treatments, and oxygen. He is allergic to penicillin. 3. Asthma, not in exacerbation. He is not wheezing. 4. Deep vein thrombosis prophylaxis with heparin subcutaneously given his kidney dysfunction but that has improved and now his kidney function is normal so I will increase it to every 8 hours. 5. Deep venous thrombosis prophylaxis with heparin subcutaneously every 12 hours. 6. Acute on chronic kidney disease, resolved. 7. Hypertension. Blood pressure has been stable. We will continue with the same management. 8. Seizure disorder. Continue with Keppra twice a day. 9. History of coronary artery disease with coronary artery bypass graft. Aware. No chest pain at this moment. 10. Possible oral candidiasis. I will start this patient on nystatin. CRITICAL CARE TIME: 30 minutes. cc: Toño Li MD
[2018-10-27] MEDS: MIRALAX PO SCH ×2 (10:13→20:15)
[2018-10-27 17:02] LABS: AGAP 10; BUN 11 mg/dL (8-22); CALCIUM 8.4 mg/dL (8.8-10.2); CHLORIDE 105 mmol/L (98-107); COSMO 285; CREATININE 1.1 mg/dL (0.7-1.2); ESTIMATED GFR > 60; GLUCOSE 142 mg/dL (70-104); POTASSIUM 3.6 mmol/L (3.5-5.1); SODIUM 142 mmol/L (136-145); TCO2 27 mmol/L (25-35)
[2018-10-27] MEDS: TYLENOL PO PRN (20:14)
[2018-10-27] MEDS: PRAVACHOL PO SCH (20:15)
[2018-10-28] MEDS: HUMULIN R SUBQ SCH ×8 (00:16→22:19)
[2018-10-28] MEDS: ZYVOX 600 MG/D5W 600 MG/300 ML IVPB IV SCH (01:45)
[2018-10-28] MEDS: DUONEB (A & A) INH SCH ×4 (03:23→21:43)
[2018-10-28] MEDS: MERREM 1 GM in NS 50 ML IV SCH ×2 (03:31→16:41)
[2018-10-28 06:06] LABS: EOS# 0.09 X1000 (0.0-0.7); EOS% 1.9 % (0.0-10.0); HEMATOCRIT 35.3 % (42.0-52.0); HEMOGLOBIN 11.8 g/dL (14.0-18.0); LYMPH# 1.13 X1000 (1.2-3.4); LYMPH% 24.4 % (20.5-51.1); MCH 30.9 PG (27-31); MCHC 33.4 g/dL (33-37); MCV 92.4 FL (81-99); MONO# 0.34 X1000 (0.11-0.59); MONO% 7.3 % (1.7-9.3); MPV 11.4 FL (7.4-10.4); NEUT# 3.08 X1000 (1.4-6.5); NEUT% 66.4 % (42.2-75.2); PLT 132 X1000 (130-400); RBC 3.82 XMIL (4.7-6.1); RDW 12.2 % (11.5-14.5); WBC 4.64 X1000 (4.8-10.8)
[2018-10-28 06:44] LABS: AGAP 9; BUN 10 mg/dL (8-22); CALCIUM 8.1 mg/dL (8.8-10.2); CHLORIDE 106 mmol/L (98-107); COSMO 286; ESTIMATED GFR > 60; GLUCOSE 169 mg/dL (70-104); POTASSIUM 3.4 mmol/L (3.5-5.1); SODIUM 142 mmol/L (136-145); TCO2 27 mmol/L (25-35)
[2018-10-28] MEDS ORDERED: KLOR-CON PO ONE (07:13)
--- NOTE | 2018-10-28 08:45 | PROGRESS NOTE ---
DATE: 10/28/2018 SUBJECTIVE: No acute events overnight. He has been complaining of mouth pain, but since I started nystatin yesterday, he is feeling better. He is tolerating food better. For now, will continue with the same management. His blood sugar is better controlled today. In the morning, it was 169. He came in with a blood sugar that was elevated at 815. I will continue with Lantus 30 units. He received a total of 6 units of insulin in 24 hours, so I do believe Lantus 30 for now is an acceptable dose for him. He had a bowel movement yesterday. His potassium is a little bit low, so I will replace it. I think he is stable enough to go to the medical floor and hopefully he will be discharged in the next 24 to 48 hours. OBJECTIVE: Vital Signs: Temperature 97.6, pulse 79, respiratory rate 13, blood pressure 117/63, oxygen saturation 99% on 2 L of nasal cannula. HEENT: Head normocephalic. No trauma. PERRLA. Mouth: He has some little flakes, white, that likely is oral Farida, mostly on the side of his tongue. Neurological: At this moment, he is completely alert and oriented x3. No focal deficits. LABORATORY DATA: WBC 4.6, hemoglobin 11.8, hematocrit 35.3, platelets 132,000. Sodium 142, potassium 3.4, chloride 106, bicarbonate 27, BUN 10, creatinine 1, glucose 169, calcium 8.1. ASSESSMENT AND PLAN: 1. Nonketotic hyperglycemia with newly diagnosed type 2 diabetes. Two days ago, we started this patient on Lantus 20 and yesterday it was increased to 30. His insulin has been better controlled. He only received around 6 units of extra insulin in the past 24 hours. His blood sugar looks better. Anion gap is closed. Will continue with the same management. 2. Cough with shortness of breath and likely community-acquired pneumonia, left perihilar area. Continue with meropenem, breathing treatment and oxygen. He is allergic to penicillin. Since his blood culture has been negative for at least 48 hours, I will stop the linezolid at this moment. 3. Asthma, not in exacerbation. He has not wheezing or having shortness of breath today. 4. Deep vein thrombosis prophylaxis with heparin. 5. Acute on chronic kidney disease, resolved. 6. Hypernatremia. Blood pressure has been stable. Will continue with the same management. 7. Seizure disorder. Continue with Keppra twice a day. 8. History of coronary artery disease with coronary artery bypass graft. Aware. No chest pain at this moment. 9. Possible oral candidiasis. Continue with nystatin. This patient is feeling better. 10. Hypokalemia. I will replace the potassium. cc: Toño Li MD
[2018-10-28] MEDS: CENTRUM SILVER PO SCH (09:18)
[2018-10-28] MEDS: MIRALAX PO SCH ×2 (09:18→22:18)
[2018-10-28] MEDS: KEPPRA PO SCH ×2 (09:18→22:17)
[2018-10-28] MEDS: SINGULAIR PO SCH (09:18)
[2018-10-28] MEDS: TOPROL XL PO SCH (09:18)
[2018-10-28] MEDS: ASPIRIN EC PO SCH (09:18)
[2018-10-28] MEDS: HEPARIN SUBQ SCH ×2 (09:19→22:29)
[2018-10-28] MEDS: ULORIC PO SCH (09:19)
[2018-10-28] MEDS: BASAGLAR SUBQ SCH (09:19)
[2018-10-28] MEDS: MYCOSTATIN SUSP PO SCH ×4 (10:28→22:17)
[2018-10-28] MEDS: PRAVACHOL PO SCH (22:17)
[2018-10-28] MEDS: TYLENOL PO PRN (22:29)
[2018-10-29] MEDS: DUONEB (A & A) INH SCH ×2 (03:00→09:37)
[2018-10-29 05:27] VITALS: BP 115/62
[2018-10-29] MEDS: MERREM 1 GM in NS 50 ML IV SCH (05:47)
[2018-10-29] MEDS: HUMULIN R SUBQ SCH (07:21)
[2018-10-29 07:39] LABS: BASO# 0.01 X1000 (0.0-0.2); BASO% 0.2 % (0.0-0.8); EOS# 0.08 X1000 (0.0-0.7); HEMATOCRIT 36.5 % (42.0-52.0); HEMOGLOBIN 12.2 g/dL (14.0-18.0); LYMPH# 0.98 X1000 (1.2-3.4); LYMPH% 24.1 % (20.5-51.1); MCHC 33.4 g/dL (33-37); MCV 92.6 FL (81-99); MONO# 0.31 X1000 (0.11-0.59); MONO% 7.6 % (1.7-9.3); MPV 11.4 FL (7.4-10.4); NEUT# 2.69 X1000 (1.4-6.5); NEUT% 66.1 % (42.2-75.2); PLT 147 X1000 (130-400); RBC 3.94 XMIL (4.7-6.1); WBC 4.07 X1000 (4.8-10.8)
[2018-10-29 07:57] LABS: AGAP 8; BUN 12 mg/dL (8-22); CALCIUM 8.5 mg/dL (8.8-10.2); CHLORIDE 107 mmol/L (98-107); COSMO 286; CREATININE 0.9 mg/dL (0.7-1.2); ESTIMATED GFR > 60; GLUCOSE 128 mg/dL (70-104); MAGNESIUM 1.8 mg/dL (1.5-2.7); PHOSPHORUS 2.2 mg/dL (2.7-4.5); POTASSIUM 3.8 mmol/L (3.5-5.1); SODIUM 143 mmol/L (136-145); TCO2 28 mmol/L (25-35)
[2018-10-29] MEDS: BASAGLAR SUBQ SCH (09:02)
[2018-10-29] MEDS: HEPARIN SUBQ SCH (09:02)
[2018-10-29] MEDS: CENTRUM SILVER PO SCH (09:02)
[2018-10-29] MEDS: ULORIC PO SCH (09:02)
[2018-10-29] MEDS: KEPPRA PO SCH (09:03)
[2018-10-29] MEDS: ASPIRIN EC PO SCH (09:03)
[2018-10-29] MEDS: MYCOSTATIN SUSP PO SCH (09:03)
[2018-10-29] MEDS: MIRALAX PO SCH (09:03)
[2018-10-29] MEDS: TOPROL XL PO SCH (09:03)
[2018-10-29] MEDS: SINGULAIR PO SCH (09:03)
--- NOTE | 2018-10-30 08:39 | DISCHARGE SUMMARY ---
ADMISSION DATE: 10/25/2018 DISCHARGE DATE: 10/29/2018 DISCHARGE DIAGNOSIS: 1. Nonketotic hyperglycemia with newly diagnosed type 2 diabetes. 2. Cough with shortness of breath with left perihilar pneumonia. 3. Asthma, not in exacerbation. 4. [id number] kidney disease, resolved. 5. Hyponatremia, resolved. 6. Seizure disorder in the past. 7. History of coronary artery disease with coronary artery bypass graft. 8. Oral Candidiasis. 9. Hypokalemia, resolved. HOSPITAL COURSE: This is an 78-year-old male with a past medical history of hypertension, arthritis, seizure disorder, asthma and coronary artery disease status post CABG a long time ago. Her presented to the emergency department and was admitted on due to 3 weeks' history of polyuria, dry mouth, and problem eating due to pain and dry mouth. Also, he has been complaining of cough, nonproductive, and shortness of breath. He denied any chills or any fever. He does have an inhaler. He has had asthma all his life. No history of smoking, but he has had inspiratory wheezes. In the emergency department, we found out that this patient's white blood cell was 16,000. Chest x-ray showed left perihilar pneumonia and glucose level was 815 with no medical history of diabetes but, apparently, the last time he saw his primary provider, the doctor told him to not eat too much sugar because his blood sugar was a little bit elevated. Hemoglobin A1c was performed and was 8.5. We started insulin drip on this patient, and we transferred this patient to the ICU. We started this patient on broad-spectrum antibiotics. Likely, also, this patient had some yeast infection in his mouth, so Nystatin was started as well. He received plenty of fluids and, like I mentioned before, insulin drip. His blood sugar was better controlled, and we started this patient on Lantus, and we stopped the insulin drip. The first day though, we started with Lantus 10 and it was not enough. His blood sugar was still elevated, but the anion gap was closed, so we used sliding scale insulin and pattern of blood sugar, and we increased the dose of Lantus to 30. For 2 days in a row, his blood sugar has been controlled between 107 and 184. This patient today is feeling much better. He is not coughing too much. No problem breathing. No shortness of breath. He is eating good. We requested a re- evaluation by the product scientist which will explain to him how to eat. Also, he will be discharged on insulin, the same amount that he was getting during this hospitalization, and he was tolerating that. He was instructed on how to use the insulin pen. Like I said, no symptoms today. He was hydrated. He was not having polyuria like before. All this process has been explained to the patient and the who is at the bedside. They seemed to understand. They will follow up with his primary care doctor next week, and they will re-evaluate the blood sugar again. I instructed the patient how to use a glucometer which should be before meals and before bed and take a note of those results so the primary care doctor can check on that and make decisions on his treatment. The patient will be discharged today. He seems to be stable and feeling much better. Kidney function back to normal as well as all the electrolytes. DISCHARGE PHYSICAL EXAMINATION: Vital Signs: Temperature 98.1, pulse 85, respiratory rate 16, blood pressure 115/62. Oxygen saturation 96% on room air. HEENT: Head normocephalic. No trauma. PERRLA. Neck: Supple. No JVD. No masses. Central trachea. Chest: Clear to auscultation. No wheezing. No rales. Abdomen: Soft, nontender, nondistended. No hepatosplenomegaly. Extremities: No edema. No clubbing. No cyanosis. Neurological: The patient is alert and oriented x3. No focal deficits. LABORATORY: WBC 4, hemoglobin 12.2, hematocrit 36.5, platelets 147,000. Sodium 143, potassium 3.8, chloride 107, bicarbonate 28. BUN 12, creatinine 0.9, glucose 128, calcium 8.5, magnesium 1.8. DISCHARGE MEDICATIONS: 1. Singulair 10 mg p.o. daily. 2. Metoprolol succinate ER 1 tablet p.o. daily, 50 mg. 3. Losartan 50 mg p.o. daily. 4. Keppra 500 mg p.o. b.i.d. 5. Uloric 80 mg p.o. daily. 6. Aspirin 81 mg, 1 tablet p.o. daily. 7. Amlodipine 5 mg p.o. daily. 8. Pravastatin 40 mg p.o. daily. 9. MiraLAX 17 g p.o. daily. 10. Multivitamin 1 tablet p.o. daily. 11. Levofloxacin 750 mg p.o. daily for 5 days. 12. Insulin glargine 30 units subq q.a.m. 13. Acetaminophen: 650 mg p.o. q.6 hours as needed for fever. This patient has been instructed to go to see his primary care doctor next week. All the instructions were given to the and the patient at the same time. Time discharging this patient: 35 minutes. cc: Toño Li MD MTDD
== END 2018-10-29 13:08 | disposition home or self-care (01) | DRG 637 ==
LOC: ED 11:10 → EDIPHOLD 14:51 → ICU 10-26 02:25 → 3N 10-28 16:32
PROVIDERS: ATTEND Internal Medicine
CPT/HCPCS: 51702; 71010; 71020; 71045; 71046; 80048; 80053; 80061; 80101; 80301; 80307; 80324; 80345; 80346; 80353; 80358; 80361; 80365; 81001; 82009; 82150; 82330; 82550; 82805; 82948; 83036; 83605; 83690; 83721; 83735; 83880; 83992; 84100; 84443; 84484; 85025; 85610; 85730; 87040; 87275; 87276; 87804; 93005; 93010; 94640; 94760; 94761; 94799; 96361; 96365; 96366; 96367; 96368; 96372; 99285; A9270; G0431; G0434; G0479; G0480; J1644; J2020; J2185; J3370; J3475; J7030; J7050; XXXXX